=== PATIENT | female | born 1960 | race Caucasian/White ===

== ENCOUNTER 2022-09-29 10:29 | Outpatient (CLI) | payer BC | END 2022-09-29 10:30 | disposition home or self-care (01) | LOC: CSHMAMMO 10:29 | PROVIDERS: ATTEND Family Medicine Sports Medicine | DX: Z12.31 Encounter for screening mammogram for malignant neoplasm of breast (principal); M81.0 Age-related osteoporosis without current pathological fracture; M85.89 Other specified disorders of bone density and structure, multiple sites; Z91.89 Other specified personal risk factors, not elsewhere classified; Z80.3 Family history of malignant neoplasm of breast | CPT/HCPCS: 77063; 77067; 77080 ==